=== PATIENT | female | born 2000 | race Caucasian/White ===

== ENCOUNTER 2019-04-05 14:43 | Emergency (ER) | payer OTHER, SELFPAY ==
[2019-04-05 15:43] VITALS: BP 119/79; PULSE 92; RESP 20; TEMP 36.8; O2SAT 100
--- NOTE | 2019-04-05 16:51 | ED.GENADULT ---
HPI - General Adult General Chief complaint: Ear Stated complaint: right ear Time Seen by Provider: 04/05/19 16:51 Source: patient and RN notes reviewed Mode of arrival: ambulatory Limitations: no limitations History of Present Illness HPI narrative: 18-year-old female presents with complaints of bumps, redness, warmth, tenderness, and swelling to right upper earlobe for 2 days. Increasing symptoms over the last 24 hours with swelling, redness, and warmth. No treatment. Denies radiation of tenderness, redness, or swelling. No exacerbating factors. Denies inner ear pain. Denies open areas or drainage. Denies fever or chills. Denies nausea, vomiting, and abdominal pain. Tolerating po intake well. Rose denies being , LMP unknown currently on Depo Provera injections. Some parts of this dictation were generated by voice recognition software and may contain typographical and/or grammatical inaccuracies. Related Data Home Medications Medication Instructions Recorded Confirmed buspirone 10 mg PO TID 04/05/19 04/08/19 venlafaxine 150 mg PO QAM 04/05/19 04/08/19 Allergies Allergy/AdvReac Type Severity Reaction Status Date / Time No Known Allergies Allergy Verified 04/08/19 09:38 Review of Systems Review of Systems: Narrative: CONSTITUTIONAL: Denies fever, chills, sweats. EYES: Denies visual changes, redness, discharge. ENT: Denies rhinorrhea, congestion, sore throat, otalgia. CARDIOVASCULAR: Denies chest pain, palpitations, edema. RESPIRATORY: Denies dyspnea, wheezing, cough. GASTROINTESTINAL: Denies abdominal pain, nausea, vomiting, diarrhea. GENITOURINARY: Denies dysuria, hematuria, abnormal discharge. SKIN: Complains of bumps, redness, swelling, warmth, and tenderness to RT upper ear lobe. Denies drainage. MUSCULOSKELETAL: Denies acute back pain, joint pain, or myalgia. NEUROLOGIC: Denies numbness or focal weakness. PSYCHIATRIC: Denies anxiety or depression. All systems reviewed & are unremarkable except as noted in HPI and below. [facility] Family History Family History Mother Hypertension Grandparent Family history of malignant neoplasm of breast Family history of type 2 diabetes mellitus Social History Social History Smoking status: Never smoker Second hand tobacco smoke exposure: No Alcohol intake: never Substance use: never Gender identity (if verbalized by the patient): Female Comments At time of signature, agree with nurse past medical, surgical, social, and family history. There is no relevant family history pertinent to the presenting complaint. Exam Narrative: Exam Narrative: GENERAL: This is a well-nourished, well-developed patient, in no apparent distress. HEAD: normocephalic, atraumatic. EYES: PERRL. Sclera clear/white. Vision is grossly intact. CARDIOVASCULAR: Regular rate and rhythm without murmurs, gallops, or rubs. RESPIRATORY: Clear to auscultation. Breath sounds equal bilaterally. No wheezes, rales, or rhonchi. GASTROINTESTINAL: Abdomen soft, non-tender, nondistended. Bowel sounds are active. No hepato-splenomegaly, or palpable masses. No guarding. SKIN: warm, RT upper HRLIX with mild-moderate erythema and warmth, no fluctuation, I&D not necessary at this time. Surrounding Cellulitis. Skin intact. No drainage or ecchymosis. Good texture and turgor. NEURO: awake, alert, and oriented to person, place and time. There were no obvious focal neurologic abnormalities. Steady gait EXTREMITIES: No clubbing, cyanosis, or edema. BACK: Nontender without deformity. Nelson Coma Scale Eye Opening: Spontaneous 4 Usman Coma Scale Motor: Obeys Commands 6 Nelson Coma Scale Verbal: Oriented 5 Course Vital Signs Vital signs: Vital Signs Temperature 36.8 C 04/05/19 15:43 Pulse Rate 92 04/05/19 15:43 Respiratory Rate 20 04/05/19 15:43 Blood Pressure
== END 2019-04-05 17:07 | disposition home or self-care (01) ==
PROVIDERS: Emergency Provider Nurse Practitioner Family
DX: H60.11 Cellulitis of right external ear (principal); F41.9 Anxiety disorder, unspecified; F32.9 Major depressive disorder, single episode, unspecified
CPT/HCPCS: 99213; G0463

== ENCOUNTER 2019-04-08 09:13 | Emergency (ER) | payer OTHER, SELFPAY ==
[2019-04-08 09:17] VITALS: BP 120/75; PULSE 80; RESP 20; TEMP 37.2; O2SAT 100
--- NOTE | 2019-04-08 10:13 | ED.GENADULT ---
HPI - General Adult General Chief complaint: Upper Respiratory Infection Stated complaint: chills stomach pains Time Seen by Provider: 04/08/19 10:13 Source: patient and RN notes reviewed Mode of arrival: ambulatory Limitations: no limitations History of Present Illness HPI narrative: 18-year-old female who presents to [facility] care with complaints of nausea, stomach aches, feeling shaky, and some diarrhea. Patient was seen in the express care on the for possible cellulitis to the upper ear lobe of her right ear with red lesions which have now scabbed and decreased in size patient wonders if some of her symptoms are related to Bactrim RX she was given. Mother state that brother had positive strep last week. MD complaint: nausea and stomach pain Onset (ago): day(s) (2) Location: head (righ upper ear) and abdomen Radiation: non-radiation Severity: mild Severity scale (1-10): 3 (3) Quality: aching Pain Consistency: constant Relieving factors: none Exacerbating factors: eating Associated symptoms: fever/chills, headaches and nausea/vomiting Treatments prior to arrival: NSAID Related Data Home Medications Medication Instructions Recorded Confirmed buspirone 10 mg PO TID 04/05/19 04/08/19 venlafaxine 150 mg PO QAM 04/05/19 04/08/19 Allergies Allergy/AdvReac Type Severity Reaction Status Date / Time No Known Allergies Allergy Verified 04/08/19 09:38 Review of Systems Review of Systems: Narrative: CONSTITUTIONAL:report feels feverish, chills, or sweats. EYES: Denies visual changes, redness, or discharge. ENT: Denies rhinorrhea, congestion, sore throat, or otalgia. CARDIOVASCULAR: Denies chest pain, palpitations, or edema. RESPIRATORY: Denies cough or dyspnea. GASTROINTESTINAL: Positive for abdominal discomfort, nausea, vomiting, and diarrhea. GENITOURINARY: Denies dysuria or hematuria. SKIN: Denies rash or itching.healing lesions to outer upper right ear, no redness or swelling MUSCULOSKELETAL: Denies back pain, joint pain, or myalgia. NEUROLOGIC: Positive headache,no numbness, or weakness.states feels shaky PSYCHIATRIC: Denies anxiety or depression. All systems reviewed & are unremarkable except as noted in HPI and below PMFSH Past Medical History Medical History Anxiety Depression Surgical History Surgical History History of lumpectomy of left breast 3 to 4 years ago Family History Family History Mother Hypertension Grandparent Family history of malignant neoplasm of breast Family history of type 2 diabetes mellitus Social History Social History Smoking status: Never smoker Second hand tobacco smoke exposure: No Alcohol intake: never Substance use: never Gender identity (if verbalized by the patient): Female Comments At time of signature, agree with nursing past medical, social history. There is no relevant family history pertinent to the presenting complaint Exam Narrative: Exam Narrative: GENERAL: Well-appearing, well-nourished, and in no acute distress. HEAD: Normocephalic, atraumatic. EYES: PERRLA and EOMI. ENT: Nares clear, no rhinorrhea or epistaxis. Mucous membranes moist.TM's normal with good light reflex, Throat red with no lesions or exudate, some tonsil swelling noted NECK: Supple.mild lymphadenopathy CHEST: Clear to auscultation. No respiratory distress. HEART: Regular rate and rhythm. No murmur heard. Normal peripheral pulses. ABDOMEN: Soft, nontender on palpation with negative McBurney tenderness,, non distended, normal active bowel sounds. EXTREMITIES: Normal range of motion. No edema. SKIN: Warm, dry, no rash.healing redness to right outer ear and healing lesions NEURO: No focal deficits. Alert and oriented x3. Course Vital Signs Vital signs: Vital Sig
== END 2019-04-08 10:40 | disposition home or self-care (01) ==
PROVIDERS: Emergency Provider Registered Nurse
DX: J02.0 Streptococcal pharyngitis (principal); F32.9 Major depressive disorder, single episode, unspecified; F41.9 Anxiety disorder, unspecified
CPT/HCPCS: 87804; 87880; 99213; G0463

== ENCOUNTER 2020-05-21 15:51 | Emergency (ER) | payer OTHER, SELFPAY ==
[2020-05-21 16:03] VITALS: BP 132/84; PULSE 93; RESP 18; TEMP 36.6; O2SAT 98
--- NOTE | 2020-05-21 16:14 | ED.SKABFB ---
HPI - Skin/Abscess/Foreign Bdy General Chief complaint: Skin/Abscess/Foreign Body Stated complaint: Fall/Head Injury Time Seen by Provider: 05/21/20 16:10 Source: patient and RN notes reviewed History of Present Illness HPI narrative: Patient is a 19-year-old female who presents the urgent care with complaints of a head injury. Patient states that she was sitting on a trailer which they were trying to hook to the back of a truck, the trailer was sitting on blocks and it slipped off the blocks, causing the patient to fall forward and hitting her head on a metal bar. Patient states that she has taken 400 mg of ibuprofen since the fall and does still have a headache. Patient denies of any vision changes, nausea, vomiting, loss of consciousness. Patient states that the fall was witnessed. Patient is worried about the dent in her head . No other acute complaints. No acute distress noted. Patient aware of the plan of care. Some parts of this dictation were generated by voice recognition software and may contain typographical and/or grammatical inaccuracies. Related Data Home Medications Medication Instructions Recorded Confirmed fluoxetine 20 mg capsule 20 mg PO DAILY 03/11/20 Allergies Allergy/AdvReac Type Severity Reaction Status Date / Time No Known Allergies Allergy Verified 05/21/20 16:13 Review of Systems Review of Systems: Narrative: CONSTITUTIONAL: Denies fever, chills, or sweats. EYES: Denies visual changes, redness, or discharge. ENT: Denies rhinorrhea, congestion, sore throat, or otalgia. CARDIOVASCULAR: Denies chest pain, palpitations, or edema. RESPIRATORY: Denies cough or dyspnea. GASTROINTESTINAL: Denies abdominal pain, nausea, vomiting, or diarrhea. GENITOURINARY: Denies dysuria or hematuria. SKIN: Reports of a dent and bruising in the forehead MUSCULOSKELETAL: Denies back pain, joint pain, or myalgia. NEUROLOGIC: Reports of headache All other systems reviewed are negative, except as documented in HPI. [facility] Past Medical History Medical History (Updated 05/21/20 @ 16:22 by MOISES Hernandez) Anxiety Depression Surgical History Surgical History History of lumpectomy of left breast 3 to 4 years ago Family History Family History Mother Hypertension Grandparent Family history of malignant neoplasm of breast Family history of type 2 diabetes mellitus Social History Social History Smoking status: Never smoker Second hand tobacco smoke exposure: No Alcohol intake: never Substance use: never Gender identity (if verbalized by the patient): Female Comments At the time of my signature, I reviewed and agree with the nursing past medical, surgical, social, and family history. There is no relevant family history pertinent to the patient complaint. Exam Narrative: Exam Narrative: GENERAL: This is a well-nourished, well-developed patient, in no apparent distress. HEAD: normocephalic, atraumatic. EYES: PERRL. Sclera clear/white. Vision is grossly intact. EARS: External ears normal, auditory canals clear and without drainage, TMs normal without perforation. Hearing grossly intact. NOSE: External nose normal with no obvious nasal discharge, nares without redness, no rhinorrhea. THROAT: Mucous membranes moist, posterior pharynx clear. NECK: Neck supple, non-tender without lymphadenopathy SKIN: 1 cm area of ecchymosis/hematoma noted to the right upper forehead with 0.5 cm small indention. Tenderness around the area. Warm, intact with no suspicious lesions or rash, good texture and turgor. NEURO: awake, alert, and oriented to person, place and time. There were no obvious focal neurologic abnormalities. EXTREMITIES: No clubbing, cyanosis, or edema. Course Vital Signs Vital signs: Vital Signs Temperature 97.8 F 0
[2020-05-21 16:15] VITALS: BP 132/84; PULSE 93; RESP 18; TEMP 36.6; O2SAT 98
== END 2020-05-21 16:26 | disposition home or self-care (01) ==
PROVIDERS: Emergency Provider Nurse Practitioner Family; PCP Physician Assistant Medical
DX: S00.93XA Contusion of unspecified part of head, initial encounter (principal); W19.XXXA Unspecified fall, initial encounter; R51.9 Headache, unspecified; F41.9 Anxiety disorder, unspecified; F32.9 Major depressive disorder, single episode, unspecified
CPT/HCPCS: 99212; G0463

== ENCOUNTER 2023-11-15 09:13 | Outpatient (CLI) | payer OTHER, SELFPAY ==
--- NOTE | ~2023-11-15 | US_ITS ---
US breast RT limited 11/15/2023 09:48 Indication: Palpable right breast abnormality. History of prior lumpectomy for fibrous tissue. No fam kimberlee history of breast cancer. Procedure: High-resolution Limited ultrasound of the right breast Comparison: No prior studies for comparison. Findings: At 11:00, 4 cm from the nipple there is an oval parallel oriented heterogeneous appearing m ass measuring 2.4 x 2.2 x 1.4 cm without internal vascularity or posterior shadowing. At 10:30, 3 cm from the nipple there is an oval circumscribed parallel oriented hypoechoic mass without posterior fe atures measuring 10 x 9 x 6 mm. At 9:00, 4 cm from the nipple there is an oval hypoechoic circumscrib ed mass with some irregular margins along the lateral aspect measuring 11 x 13 x 7 mm. There is poste rior acoustic enhancement and marginal vascularity. Impression: 1: Probable benign right breast masses. BI-RADS CATEGORY 3-PROBABLY BENIGN FINDING RECOMMENDATION: 6 month follow up recommended. Reviewed, dictated and finalized at location B. Impression: 1: Probable benign right breast masses. BI-RADS CATEGORY 3-PROBABLY BENIGN FINDING RECOMMENDATION: 6 month follow up recommended.
== END 2023-11-15 09:14 | disposition home or self-care (01) ==
PROVIDERS: PCP Physician Assistant Medical; Visit Provider Nurse Practitioner Obstetrics & Gynecology
DX: N63.11 Unspecified lump in the right breast, upper outer quadrant (principal)
CPT/HCPCS: 76642

== ENCOUNTER 2024-07-08 08:48 | Outpatient (CLI) | payer OTHER, SELFPAY ==
--- NOTE | ~2024-07-08 | US_ITS ---
US breast RT limited 07/08/2024 09:06 Indication: Follow-up right breast masses Procedure: High-resolution Limited ultrasound of the right breast Comparison: Findings: At 9:00, 4 cm from the nipple there is an oval parallel oriented hypoechoic mass measuring 1.6 x 1.3 x 1 cm. There is posterior acoustic enhancement and internal vascularity. This compares to measurements of 1.3 x 1.1 x 0.7 cm on prior examination. At 10:30, 3 cm from the nipple there is an o santi parallel oriented hypoechoic mass measuring 8 x 8 x 6 mm compared with 11 x 9 x 6 mm on prior exa mination. At 11:00, 4 cm from the nipple there is an oval hypoechoic heterogeneous mass measuring 3 x 2.7 x 1.9 cm compared with 2.4 x 2.2 x 1.4 cm on prior examination. Impression: 1: Slight enlargement of right breast masses located at 9:00, 4 cm from the nipple and 11:00, 4 cm fr om the nipple, although still likely benign. Decreased size of mass present at 10:30, 3 cm from the n ipple. BI-RADS CATEGORY 3-PROBABLY BENIGN FINDING RECOMMENDATION: Six-month follow-up Limited right breast ultrasound recommended. Reviewed, dictated and finalized at location A. Impression: 1: Slight enlargement of right breast masses located at 9:00, 4 cm from the nip ple and 11:00, 4 cm from the nipple, although still likely benign. Decreased si ze of mass present at 10:30, 3 cm from the nipple. BI-RADS CATEGORY 3-PROBABLY BENIGN FINDING RECOMMENDATION: Six-month follow-up Limited right breast ultrasound recommended .
--- OUTSIDE RECORDS SUMMARY | 2024-07-08 08:52 | XMS_ITS | Clinical Summary ---
Author Organization [facility] [address] l[address] Address [address] [place] [address] Care Team Providers Care Aircraft Engine Specialist Name Role Phone Nereyda Goss Primary Care Provider [phone] Unknown, Notinfile Unavailable Unavailable Allergies No known active allergies Medications buPROPion XL (WELLBUTRIN XL) 300 mg 24 hr tablet 1 tablet (300 mg total) 3 Active SUMAtriptan (IMITREX) 50 mg tabletIndication s:Migraine Take 1 tablet (50 mg total) by mouth once as needed for migraine May repeat after 2 hours. 27 tablet 4 4 Active ondansetron (ZOFRAN) 4 mg tabletIndication s:Migraine without aura and without status migrainosus, not intractable Take 1 tablet (4 mg total) by mouth every 8 (eight) hours as needed for nausea or vomiting 20 tablet [address] (NexIUM) 40 mg capsuleIndicatio ns:Gastroesophag eal reflux disease without esophagitis Take 1 capsule (40 mg total) by mouth daily before breakfast 30 capsule 11 4 Active Additional Information Patient not taking.Reported on 01/17/2024 azelastine (ASTELIN) 137 mcg (0.1 %) nasal sprayIndications :Chronic MARCELLUS (middle ear effusion), left Administer 1 spray into each nostril 2 (two) times a day Use in each nostril as directed 30 mL 4 Active cholecalciferol (VITAMIN D-3) 50,000 unit capsuleIndicatio ns:Vitamin D Deficiency Take 1 capsule (50,000 Units total) by mouth once a week 4 capsule 1 4 Active propranoloL (INDERAL) 10 mg tablet Take 1 tablet (10 mg total) by mouth 3 (three) times a day Active Active Problems Problem Noted Date Diagnosed Date Scoliosis 05/12/2014 Syncope 02/27/2012 Immunizations Immunization Administration Dates Next Due DTaP, Unspecified 08/18/2003, 1,02/17/1999,12/16,1998 Hep A, Unspecified 10/18/2011,09/21/2009 Hep B, Unspecified 05/17/1999,02/17/1999, 999 HiB 12/04/1999, 0,1998,10/18 Influenza, Quadrivalent, Spl it, Preservative Free, Intramuscular 11/07/2022 MMR 08/18/2003,08/31/1999 Meningococcal B, Recombinant (Trumenba) 05/13/2017,08/29/2016 Meningococcal MCV4P (Menactra) 07/28/2014,2009 Pfizer Sars-Cov-2 Bivalent V accination (12+ YRS) 12/07/2021 Polio, Unspecified 08/18/2003, 1,1998,10/18 Tdap 09/21/2009 Varicella 10/24/2007,11/01/1999 Surgical History Surgery Date Site/Laterality Comments BREAST BIOPSY 02/11/2011 - 02/11/2012 Left Medical History Medical History Date Comments Anxiety and depression Family History Medical History Relation Name Comments Low Back Pain Father Opal Lozoya Family history of low back pain - (Added by TW Conv) Obesity Father Opal Lozoya Hypertension Mother Carly Lozoya Hypertension - (Added by TW Conv) Low Back Pain Mother Carly Lozoya Family hist ory of low back pain - (Added by TW Conv) Obesity Mother Carly Lozoya Scoliosis Mother Carly Lozoya Family histo ry of scoliosis - (Added by TW Conv) Relation Name Status Comments Father Opal Lozoya Alive Mother Carly Lozoya Alive Social History Tobacco Use Types Packs/Day Years Used Date Smoking Tobacco: Never Smokeless Tobacco: Never Tobacco Cessation:Counseling Given: Not Answered AUDIT-C Answer Date Recorded Q1: How often do you have a drink containing alc ohol? Monthly or less 03/06/2023 Q2: How many drinks containi ng alcohol do you have on a typical day when you are drinking? 1 or 2 03/06/2023 Frequency of Binge Drinking Not on file 02/12 PHQ-2 Answer Date Recorded PHQ-2 Total Score (If total score is 3 or more points, staff should administer the PHQ-9) 2 03/06/2023 Comments Unknown Sex and Gender Information Value Date Recorded Sex Assigned at Not on file Legal Sex Female 6:28 AM POST ANESTHESIA NURSE Gender Identity Not on file Sexual Orientation Not on file Obstetrics History Last Filed Vital Signs Vital Sign Reading Time Taken Comments Blood Pressure 128/85 01/17/2024 2:57 PM POST ANESTHESIA NURSE Pulse 83 01/17/2024 2:57 PM POST ANESTHESIA NURSE Temperature 36.3 C (97.4 F) 03/06/2023 9:57 AM POST ANESTHESIA NURSE Respiratory Rate 16 08/02/2022 6:26 PM CDT Oxygen Saturation 98% 03/06/2023 9:57 AM POST ANESTHESIA NURSE Inhaled Oxygen Concentration - - Weight 59.4 kg (131 lb) 01/17/2024 2:57 PM POST ANESTHESIA NURSE Height 162.6 cm (5' 4) 01/17/2024 2:57 PM POST ANESTHESIA NURSE Body Mass Index 22.49 01/17/2024 2:57 PM POST ANESTHESIA NURSE Plan of Treatment Health Maintenance Due Date Last Done Comments Hepatitis C Screening 1998 HPV Vaccines (1 - 3-dose series) 2013 Regular Well Visit/Exam 18-64 2016 DTaP/Tdap/Td Vaccine (7 - Td or Tdap) 09/22/2019 09/21/2009, 08/18/2003, 02/14/2000, Additional history exists Covid-19 Vaccine ( season) 2023 12/07/2021, 01/03/2021, 03/30/2020, Additional history exists Depression Screening 03/06/2024 03/06/2023, 03/06/19 Influenza Vaccine (Season Ended) 2024 11/07/2022 Cervical Cancer Screening 09/12/2027 09/11/2022 Hepatitis B Screening Completed 05/17/1999 , 02/17/1999, 1998 Varicella Vaccines Completed 10/24/2007, 11/01/1999 Pneumococcal vaccine <65 Aged Out No longer eligible based on patient's age to complete this topic Insurance [facility] CHOICE PLUS [facility] HMO/PPO Address: [address] [address] [place] [address] [facility] HMO/PPO Address: [address] [address] [place] [address] [facility] HMO/PPO Address: [facility] [address] [place] [address] Care Teams Aircraft Engine Specialist Relationship Specialty Start Date End Date Nereyda Goss PA [address] [place] [address] [phone] PCP - General Family Practice 04/21/22 Unknown, Notinfile 04/21/22
--- OUTSIDE RECORDS SUMMARY | 2024-07-08 08:52 | XMS_ITS | Referral Summary ---
Author Organization [facility] [address] [facility] l[address] Address [address] [place] [address] Care Team Providers Care Sales Representative Electric Service Name Role Phone Nereyda Goss Primary Care Provider [phone] Unknown, Notinfile Unavailable Unavailable Allergies No known [...] mouth once a week 4 capsule 1 Active propranoloL (INDERAL) 10 mg tablet Take [...] Unspecified 08/18/2003, 1,1998,10/18 Tdap 09/21/2009 Varicella 10/24/2007,11/01/1999 Social History Tobacco Use Types Packs/Day Years [...] on file Legal Sex Female 6:28 AM INDUSTRIAL SALES ENGINEER Gender Identity Not on file Sexual Orientation Not on file Last Filed Vital Signs Vital Sign Reading Time Taken Comments Blood Pressure 128/85 01/17/2024 2:57 PM INDUSTRIAL SALES ENGINEER Pulse 83 01/17/2024 2:57 PM INDUSTRIAL SALES ENGINEER Temperature 36.3 C (97.4 F) 03/06/2023 9:57 AM INDUSTRIAL SALES ENGINEER Respiratory Rate 16 08/02/2022 6:26 PM CDT Oxygen Saturation 98% 03/06/2023 9:57 AM INDUSTRIAL SALES ENGINEER Inhaled Oxygen Concentration - - Weight 59.4 kg (131 lb) 01/17/2024 2:57 PM INDUSTRIAL SALES ENGINEER Height 162.6 cm (5' 4) 01/17/2024 2:57 PM INDUSTRIAL SALES ENGINEER Body Mass Index 22.49 01/17/2024 2:57 PM INDUSTRIAL SALES ENGINEER Plan of Treatment Not on file Insurance [facility] CHOICE PLUS [facility] Care Teams Sales Representative Electric Service Relationship Specialty Start Date End Date Nereyda Goss PA [address] [place] [id number] PCP - General Family Practice 04/21/22 Unknown, Notinfile 04/21/22
--- OUTSIDE RECORDS SUMMARY | 2024-07-08 08:52 | XMS_ITS | Clinical Summary ---
Author Organization [facility] Address [address] [place] [address] Care Team Providers Care A P Manager Name Role Phone Unavailable Primary Care Provider Unavailabl e Source Comments [facility],non-owned Affiliates and Associated Physician Practices is amultiple site organization consisting of ambulatory clinics and hospital sitesin [place], [place], [place] and [place]. This disclosure is being madepursuant to the Care Everywhere program and may not contain all information available regarding this patient. Last updated 17.[facility] Allergies No known active allergies Medications * This document contains information received from the source organization and may not represent a complete record from that organization. * Be aware that medications may not be up to date on this document. Alwaysverify current medications with the patient. 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 Plan 6 month followup exam and left breast US Resolved Problems Problem Noted Date Diagnosed Date Resolved Date Lump or mass in breast 12/10/201301/09 Overview (01/09/2014): Left: 2:00, areola edge 11/26/2013 [place]: 2.3 cm solid mass, cat 4 6 month followup with repeat ultrasound versus surgical excision. The patient and her mother are leaning toward surgical excision, but getting a 2nd opinion with Dr. Driscoll. S/p 01/04/2014 excisional biopsy ([place]): fibroadenoma Immunizations Immunization Administration Dates Next Due Covid Pfizer primary monoval ent 12+ yr 0.3mL Purple cap 03/30/2020,03/08/2020 Family History Medical History Relation Name Comments Cancer - Breast Other mat great grandmother Relation Name Status Comments Other mat great grandmother Social History Tobacco Use Types Packs/Day Years Used Date Smoking Tobacco: Never Alcohol Use Standard Drinks/Week Comments No 0 (1 standard drink = 0.6 oz pur e alcohol) Comments No Sex and Gender Information Value Date Recorded Sex Assigned at Not on file Legal Sex Female 2:39 PM MANAGER VEHICLE Gender Identity Not on file Sexual Orientation Not on file Last Filed Vital Signs Vital Sign Reading Time Taken Comments Blood Pressure 118/78 07/16/2016 3:32 PM CDT Pulse 60 07/16/2016 3:32 PM CDT Temperature 37.3 C (99.2 F) 07/16/2016 3:32 PM CDT Respiratory Rate 16 07/16/2016 3:32 PM CDT Oxygen Saturation 100% 01/04/2014 9:00 AM MANAGER VEHICLE Inhaled Oxygen Concentration - - Weight 52.8 kg (116 lb 6.4 oz) 07/16/2016 3:32 P M CDT Height 160 cm (5' 3) 07/16/2016 3:32 PM CDT Body Mass Index 20.62 07/16/2016 3:32 PM CDT Plan of Treatment Health Maintenance Due Date Last Done Comments HIV SCREENING 2013 HPV VACCINE (1 - 3-dose series) 2013 CHLAMYDIA/GONORRHEA SCREENING 2014 HEPATITIS C SCREENING 08/09/2016 DTAP/TDAP/TD VACCINES (1 - Tdap) 2017 HEPATITIS B VACCINE (1 of 3 - 19+ 3-dose series) 2017 COVID-19 VACCINE ( - 2023-2 5 season) 2023 03/30/2020, 03/08/2020 DEPRESSION SCREENING 02/12/2024 INFLUENZA VACCINE (Season Ended) 2024 ZOSTER VACCINE (1 of 2) 2048 HIB VACCINE Aged Out No longer eligi ble based on patient's age to complete this topic MENINGOCOCCAL (Group B) VACCINE SHARED DECISION-MAKING Aged Out No longer eligible based on patient's age to complete this topic MENINGOCOCCAL GROUPS A/C/Y/W VACCINE Aged Out No longer eligible b ased on patient's age to complete this topic PNEUMOCOCCAL VACCINE Aged Out No long er eligible based on patient's age to complete this topic Insurance [facility]
== END 2024-07-08 08:49 | disposition home or self-care (01) ==
LOC: ANHIMG 08:49
PROVIDERS: PCP Physician Assistant Medical; Visit Provider Nurse Practitioner Obstetrics & Gynecology
DX: R92.8 Other abnormal and inconclusive findings on diagnostic imaging of breast (principal)
CPT/HCPCS: 76642

== ENCOUNTER 2024-09-27 18:22 | Emergency (ER) | payer OTHER, SELFPAY ==
--- NOTE | ~2024-09-27 | XR_ITS ---
HISTORY: FALL, LAT PAIN COMPARISON: None TECHNIQUE: 3 views of the left foot were performed FINDINGS: Acute minimally displaced fracture of the distal shaft of the fifth metatarsal is identified. Overlying soft tissue swelling is noted. No significant degenerative disease is noted. The base of the fifth metatarsal is intact. No calcaneal spur is noted. IMPRESSION: Acute minimally displaced fracture of the distal shaft of the fifth metatarsal with over lying soft tissue swelling. Reviewed, dictated and finalized at location A. IMPRESSION: Acute minimally displaced fracture of the distal shaft of the fift h metatarsal with overlying soft tissue swelling.
--- OUTSIDE RECORDS SUMMARY | 2024-09-27 18:25 | XMS_ITS | Clinical Summary ---
Author Organization [facility] Address [address] [place] [address] Care Team Providers Care Infertility Nurse Name Role Phone Unavailable Primary Care Provider Unavailabl e Source Comments [facility],non-owned Affiliates and Associated Physician Practices is amultiple site organization consisting of ambulatory clinics and hospital sitesin [place], [place], [place] and [place]. This disclosure is being madepursuant to the Care Everywhere program and may not contain all information available regarding this patient. Last updated 17.[facility] Allergies No known active allergies Medications * [...] Left: 2:00, areola edge 11/26/2013 [place]: 2.3 cm solid mass, cat 4 6 [...] on file Legal Sex Female 2:39 PM SUBSTANCE ABUSE SPECIALIST Gender Identity Not on file Sexual Orientation Not on file Last Filed Vital Signs Vital Sign Reading Time Taken Comments Blood Pressure 118/78 07/16/2016 3:32 PM CDT Pulse 60 07/16/2016 3:32 PM CDT Temperature 37.3 C (99.2 F) 07/16/2016 3:32 PM CDT Respiratory Rate 16 07/16/2016 3:32 PM CDT Oxygen Saturation 100% 01/04/2014 9:00 AM SUBSTANCE ABUSE SPECIALIST Inhaled Oxygen Concentration - - Weight 52.8 kg (116 lb 6.4 oz) 07/16/2016 3:32 P M CDT Height 160 cm (5' 3) 07/16/2016 3:32 PM CDT Body Mass Index 20.62 07/16/2016 3:32 PM CDT Plan of Treatment Health Maintenance Due Date Last Done Comments HIV SCREENING 2013 HPV VACCINE (1 - 3-dose series) 2013 HEPATITIS C SCREENING 08/09/2016 DTAP/TDAP/TD VACCINES (1 - Tdap) 2017 HEPATITIS B VACCINE (1 of 3 - 19+ 3-dose series) 2017 COVID-19 VACCINE (3 - 2023-2 5 season) 2023 03/30/2020, 03/08/2020 DEPRESSION SCREENING 02/12/2024 INFLUENZA VACCINE (#1) 2024 ZOSTER VACCINE (1 of 2) 2048 [...] patient's age to complete this topic Insurance [facility]
--- OUTSIDE RECORDS SUMMARY | 2024-09-27 18:25 | XMS_ITS | Clinical Summary ---
Author Organization [facility] [address] [facility] Address [address] [place] [address] Care Team Providers Care Golf Club Repairer Name Role Phone Nereyda Goss Primary Care Provider [phone] Unknown, Notinfile Unavailable Unavailable Allergies No known [...] - (Added by TW Conv) Obesity Father Oapl Lozoya Hypertension Mother Carly Lozoya Hypertension - [...] on file Legal Sex Female 6:28 AM DIRECTOR POWER Gender Identity Not on file Sexual Orientation Not on file Obstetrics History Last Filed Vital Signs Vital Sign Reading Time Taken Comments Blood Pressure 128/85 01/17/2024 2:57 PM DIRECTOR POWER Pulse 83 01/17/2024 2:57 PM DIRECTOR POWER Temperature 36.3 C (97.4 F) 03/06/2023 9:57 AM DIRECTOR POWER Respiratory Rate 16 08/02/2022 6:26 PM CDT Oxygen Saturation 98% 03/06/2023 9:57 AM DIRECTOR POWER Inhaled Oxygen Concentration - - Weight 59.4 kg (131 lb) 01/17/2024 2:57 PM DIRECTOR POWER Height 162.6 cm (5' 4) 01/17/2024 2:57 PM DIRECTOR POWER Body Mass Index 22.49 01/17/2024 2:57 PM DIRECTOR POWER Plan of Treatment Health Maintenance Due Date Last Done Comments Hepatitis C Screening 1998 HPV Vaccines (1 - 3-dose series) 2013 Regular Well Visit/Exam 18-64 2016 DTaP/Tdap/Td Vaccine (7 - Td or Tdap) 09/22/2019 09/21/2009, 08/18/2003, 02/14/2000, Additional history exists Covid-19 Vaccine ( season) 2023 12/07/2021, 01/03/2021, 03/30/2020, Additional history exists Depression Screening 03/06/2024 03/06/2023, 03/06/19 Influenza Vaccine (#1) 2024 11/07/2022 Cervical Cancer Screening 09/12/2027 09/11/2022 Hepatitis B Screening Completed 05/17/1999 , 02/17/1999, 1998 Varicella Vaccines Completed 10/24/2007, 11/01/1999 Pneumococcal vaccine <65 Aged Out No longer eligible based on patient's age to complete this topic Insurance [facility] HMO/PPO Address: [address] [address] [place] [address] [facility] H[facility]/PPO Address: [address] [address] [place] [address] [facility] H[facility]/PPO Address: [facility] [address] [place] [address] Care Teams Golf Club Repairer Relationship Specialty Start Date End Date Nereyda Goss PA [address] [place] [address] [phone] PCP - General Family Practice 04/21/22 Unknown, Notinfile 04/21/22
--- OUTSIDE RECORDS SUMMARY | 2024-09-27 18:25 | XMS_ITS | Patient Health Record ---
Author Organization [facility] Address [address] [place] [address] Care Team Providers Care General Cargo Clerk Name Role Phone Liz Bridges Unavailable [phone] Reason For Referral No Information Medications Medication SIG (Take, Route, Frequency, Duration) Notes Start Date End Date Status LORazepam 0.5 MG Oral 03/10/2019 Ac tive Venlafaxine HCl ER 75 MG Oral 03/10/2019 Active medroxyPROGESTERone Acetate 150 MG/ML Intramuscular 03/10/2019 Active Venlafaxine HCl ER 150 MG Oral 03/10/2019 Active busPIRone HCl 10 MG Oral 03/10/2019 Active Effexor XR 75 MG Oral 03/10/2019 Ac tive Immunizations Vaccine Route Administration Date Status Comme nts Tdap Unknown 02/12/2016 Administered MMR Unknown 02/12/2016 Administered Influenza, quadrivalent, spl it virus Unknown 12/08/2018 Administered Influenza, injectable, MDCK, preservative free Unknown 12/08/2018 Administered Influenza virus vaccine, quadrivalent (IIV4), split virus, 0.25 mL dosage Unknown 10/29/2018 Administered Plan Of Treatment No Information Insurance Providers Payer Name Payer Address Payer Phone Subscriber Number Group Number Insured Name Patient Relationship to Insured Coverage Start Date Coverage End Date [facility] [address] [address] [place] [address] [id number] OPAL LOZOYA Natural Child - Insured has Financial Responsibility Medical (General) History Surgical History Surgery Date(Month/Year) Biopsy of breast ([id number])
[2024-09-27 18:29] VITALS: BP 123/77; PULSE 88; RESP 18; TEMP 36.9; O2SAT 100
--- NOTE | 2024-09-27 19:08 | ED.GENADULT ---
HPI - General Adult General Chief complaint: Extremity Injury, Lower Stated complaint: Fall Injury / Toe Source: patient Mode of arrival: ambulatory Limitations: no limitations History of Present Illness HPI narrative: Patient presents for evaluation of left foot pain. Symptom onset today. She indicates that her left knee gave out. causing her to falll to the ground, with her left foot beneath her. She now has bruising and pain in the mid section of her foot. At rest her pain is 4/10 in severity but increases to 8/10 with movement and weight-bearing. She tried taking ibuprofen which seemed to help. She denies paresthesias. Related Data Home Medications ?Medication ?Instructions ?Recorded ?Confirmed ?Last Taken ?Type levonorgestrel (Mirena) 1 device intrauterine ONCE 10/31/21 09/27/23 Unknown History Allergies Allergy/AdvReac Type Severity Reaction Status Date / Time No Known Allergies Allergy Verified 09/27/24 18:47 Review of Systems Review of Systems: CONSTITUTIONAL: Denies fever, chills, or sweats. EYES: Denies visual changes, redness, or discharge. ENT: Denies rhinorrhea, congestion, sore throat, or otalgia. CARDIOVASCULAR: Denies chest pain, palpitations, or edema. RESPIRATORY: Denies cough or dyspnea. GASTROINTESTINAL: Denies abdominal pain, nausea, vomiting, or diarrhea. GENITOURINARY: Denies dysuria or hematuria. SKIN: Reports bruising left foot. Denies rash or itching. MUSCULOSKELETAL: Reports left foot pain. NEUROLOGIC: Denies headache, numbness, dizziness, or weakness. PSYCHIATRIC: Denies anxiety or depression. [facility] Past Medical History Medical History Encounter for contraceptive surveillance Yeast infection Encounter for prescription for depo-Provera Encounter for Depo-Provera contraception Encounter for annual routine gynecological examination Dysmenorrhea Acute vulvitis Depression Anxiety Surgical History Surgical History History of lumpectomy of left breast 3 to 4 years ago Family History Family History Mother Hypertension Grandparent Family history of malignant neoplasm of breast Family history of type 2 diabetes mellitus Social History Social History Smoking status: Never smoker Second hand tobacco smoke exposure: No Alcohol intake: never Substance use: never Lack of Transportation: No Lack of Food: Never True Current Housing: I Have Housing Concerned About Future Housing: No Difficulty Paying Gas/Electric Bills: No Difficulty Paying for Meds: No Currently Unemployed: No Education: Master's Degree or Higher Difficulty w/ Childcare or Family Care: No Living arrangements: with family Occupation/Education: student Gender identity (if verbalized by the patient): Female Exam Narrative: GENERAL: Well-appearing, well-nourished, and in no acute distress. HEAD: Normocephalic, atraumatic. EYES: PERRLA and EOMI. ENT: Nares clear, no rhinorrhea or epistaxis. Mucous membranes moist. Oropharynx without tonsillar hypertrophy exudate or other lesions. Bilateral TMs pearly [place] nonbulging NECK: Supple. No adenopathy or masses. No carotid bruits or JVD CHEST: Clear to auscultation. No respiratory distress. No wheezes rales or rhonchi HEART: Regular rate and rhythm. No murmur heard. Normal peripheral pulses. ABDOMEN: Soft, nontender, nondistended, normal active bowel sounds. EXTREMITIES: Normal range of motion. There is tenderness over the left 5th metatarsal. SKIN: There is ecchymosis noted to the dorsal aspect of the left foot overlying the 3rd through 5th metatarsals. NEURO: No focal deficits. Alert and oriented x3. PSYCH: Normal mood and affect. Course Course Emergency Course: This is a 24-year-old female who presented for evaluation of left foot pain. X-ray showed 5th metatarsal fracture of the left foot. She is placed in a short-leg posterior OCL and provided with crutches. Will have her follow-up with orthopedics. She declined prescription for analgesics. She should go to the emergency department for intractable pain. Patient in agreement with plan of care. Level of Care: Express Care Visit Vital Signs Vital signs: Vital Signs Temperature 36.9 C 09/27/24 18:29 Pulse Rate 88 09/27/24 18:29 Respiratory Rate 18 09/27/24 18:29 Blood Pressure 123/77 09/27/24 18:29 Pulse Oximetry 100 09/27/24 18:29 Oxygen Delivery Room Air 09/27/24 18:29 Temperature 36.9 C 09/27/24 18:29 Pulse Rate 88 09/27/24 18:29 Respiratory Rate 18 09/27/24 18:29 Blood Pressure 123/77 09/27/24 18:29 Pulse Oximetry 100 09/27/24 18:29 Oxygen Delivery Room Air 09/27/24 18:29 Procedures Orthopedic Splinting/Casting Injury #1: Splinting/Casting Date: 09/27/24 Splinting/Casting Time: 19:36 Side: left Lower Extremity Immobilizer: posterior splint Splint: customized in ED OCL: short leg Pre-Procedure Neuro Vascular Exam: normal Post-Procedure Neuro Vascular Exam: normal Medical Decision Making Vital Signs Vital Signs: Vital Signs Temperature 36.9 C 09/27/24 18:29 Pulse Rate 88 09/27/24 18:29 Respiratory Rate 18 09/27/24 18:29 Blood Pressure 123/77 09/27/24 18:29 Pulse Oximetry 100 09/27/24 18:29 Oxygen Delivery Room Air 09/27/24 18:29 Temperature 36.9 C 09/27/24 18:29 Pulse Rate 88 09/27/24 18:29 Respiratory Rate 18 09/27/24 18:29 Blood Pressure 123/77 09/27/24 18:29 Pulse Oximetry 100 09/27/24 18:29 Oxygen Delivery Room Air 09/27/24 18:29 Imaging Data Radiologist's impression: Ordering Physician: Luis Shelley APRN Date of Service: 09/27/24 Procedure(s): XR foot LT min 3V Accession Number(s): [id number] cc: Luis Shelley APRN; Nereyda Goss PA-C~ HISTORY: FALL, LAT PAIN COMPARISON: None TECHNIQUE: 3 views of the left foot were performed FINDINGS: Acute minimally displaced fracture of the distal shaft of the fifth metatarsal is identified. Overlying soft tissue swelling is noted. No significant degenerative disease is noted. The base of the fifth metatarsal is intact. No calcaneal spur is noted. IMPRESSION: Acute minimally displaced fracture of the distal shaft of the fifth metatarsal with overlying soft tissue swelling. Discharge Plan Discharge Clinical Impression: Closed fracture of fifth metatarsal bone of left foot Patient Disposition: Home Condition: Stable Instructions: Antibiotic Form, Foot Fracture in Adults (ED) Patient Language: Mongolian Prescriptions: No Action Mirena 20 mcg/24 hours (7 yrs) 52 mg intrauterine device 1 device intrauterine ONCE Rx Instructions: as a single dose Follow-up/Referrals: Josué Blancas MD [Physician] - Nereyda Goss PA-C [Primary Care Provider] - Stand Alone Forms: Work/School Release IP Time of Disposition: 19:32
== END 2024-09-27 19:40 | disposition home or self-care (01) ==
PROVIDERS: Emergency Provider Nurse Practitioner; PCP Physician Assistant Medical
DX: S92.352A Displaced fracture of fifth metatarsal bone, left foot, initial encounter for closed fracture (principal); W19.XXXA Unspecified fall, initial encounter
CPT/HCPCS: 29515; 73630; 99214; G0463

== ENCOUNTER 2024-11-09 13:11 | Outpatient (CLI) | payer OTHER, SELFPAY ==
--- NOTE | ~2024-11-09 | XR_ITS ---
EXAMINATION: XR foot LT min 3V, 11/09/2024 13:14 CDT HISTORY: M79.672 - Pain in left foot COMPARISON: No comparisons available. Findings: Nondisplaced fracture fifth metatarsal No significant degenerative changes. Soft tissues unremarkable. Impression: Metatarsal fracture Reviewed, dictated and finalized at location . Impression: Metatarsal fracture
--- OUTSIDE RECORDS SUMMARY | 2024-11-09 13:31 | XMS_ITS | Clinical Summary ---
Author Organization [facility] Address [address] [place] [address] Care Team Providers Care Captain'S Assistant Name Role Phone Unavailable Primary Care Provider Unavailabl e Source Comments [facility],non-owned Affiliates and Associated Physician Practices is amultiple site organization consisting of ambulatory clinics and hospital sitesin [place], [place], [place] and [place]. This disclosure is being madepursuant to the Care Everywhere program and may not contain all information available regarding this patient. Last updated 17.[facility] Allergies No known active allergies Medications * [...] Left: 2:00, areola edge 11/26/2013 [place]: 2.3 cm solid mass, cat 4 6 [...] on file Legal Sex Female 2:39 PM CAMP NURSE Gender Identity Not on file Sexual Orientation Not on file Last Filed Vital Signs Vital Sign Reading Time Taken Comments Blood Pressure 118/78 07/16/2016 3:32 PM CDT Pulse 60 07/16/2016 3:32 PM CDT Temperature 37.3 C (99.2 F) 07/16/2016 3:32 PM CDT Respiratory Rate 16 07/16/2016 3:32 PM CDT Oxygen Saturation 100% 01/04/2014 9:00 AM CAMP NURSE Inhaled Oxygen Concentration - - Weight 52.8 [...] of 3 - 19+ 3-dose series) 2017 DEPRESSION SCREENING 02/12/2024 COVID-19 VACCINE ( - 2024-2 6 season) 2024 03/30/2020, 03/08/2020 INFLUENZA VACCINE (#1) 2024 ZOSTER VACCINE (1 [...] patient's age to complete this topic Insurance [facility]
--- OUTSIDE RECORDS SUMMARY | 2024-11-09 13:31 | XMS_ITS | Clinical Summary ---
Author Organization [facility] [address] [facility] Address [address] [place] [address] Care Team Providers Care Refinery Operator Alkylation Name Role Phone Nereyda Goss Primary Care Provider [phone] Unknown, Notinfile Unavailable Unavailable Allergies No known [...] Date Diagnosed Date Scoliosis 05/12/2014 Syncope 02/27/2012 Encounters Date Type Department Care Team Description 09/28/2024 Telephone [facility] Orthopedics and Sports Medicine [address] [address] Josie Yap MA 09/27/2024 Ancillary Procedure [facility] Outside Films from Last 3 Months Immunizations Immunization Administration Dates Next Due DTaP, [...] on file Legal Sex Female 6:28 AM DRAFTER CASTINGS Gender Identity Not on file Sexual Orientation Not on file Obstetrics History Last Filed Vital Signs Vital Sign Reading Time Taken Comments Blood Pressure 128/85 01/17/2024 2:57 PM DRAFTER CASTINGS Pulse 83 01/17/2024 2:57 PM DRAFTER CASTINGS Temperature 36.3 C (97.4 F) 03/06/2023 9:57 AM DRAFTER CASTINGS Respiratory Rate 16 08/02/2022 6:26 PM CDT Oxygen Saturation 98% 03/06/2023 9:57 AM DRAFTER CASTINGS Inhaled Oxygen Concentration - - Weight 59.4 kg (131 lb) 01/17/2024 2:57 PM DRAFTER CASTINGS Height 162.6 cm (5' 4) 01/17/2024 2:57 PM DRAFTER CASTINGS Body Mass Index 22.49 01/17/2024 2:57 PM DRAFTER CASTINGS Plan of Treatment Health Maintenance Due Date Last Done Comments Hepatitis C Screening 1998 HPV Vaccines (1 - 3-dose series) 2013 Regular Well Visit/Exam 18-64 2016 Depression Screening 03/06/2024 03/06/2023, 03/06/19 24 Covid-19 Vaccine ( season) 2024 12/07/2021, 01/03/2021, 03/30/2020, Additional history exists Influenza Vaccine (#1) 2024 , 12/08/2018, 10/29/2018 DTaP/Tdap/Td Vaccine (8 - Td or Tdap) 02/11/2026 02/12/2016, 09/21/2009, 08/18/2003, Additional history exists Cervical Cancer Screening 09/12/2027 09/11/2022 Hepatitis B Screening Completed 05/17/1999 , 02/17/1999, 1998 Varicella Vaccines Completed 10/24/2007, 11/01/1999 Pneumococcal vaccine <65 Aged Out No longer eligible based on patient's age to complete this topic Procedures Procedure Name Priority Date/Time Associated Diagnosis Comments XR TRANSFER OF OUTSIDE FILMS Routine 09/27/2024 12:00 AM CDT from Last 3 Months Results * XR Outside Reference (09/27/2024 12:00 AM CDT) Narrative [facility] - 09/28/2024 1:20 PM CDT This order has been auto-finalized and does not contain a result. us Provider Transcribed Order IMG XR PROCEDURES Fin al Result [facility] from Last 3 Months Insurance [facility] CHO[facility] HMO/PPO Address: [facility] [address] [place] [address] [facility] H[facility]/PPO Address: [address] [place] [phone] [facility] H[facility]/PPO Address: [address] [place] [phone] Care Teams Refinery Operator Alkylation Relationship Specialty Start Date End Date Nereyda Goss PA [address] [place] [id number] PCP - General Family Practice 04/21/22 Unknown, Notinfile 04/21/22
== END 2024-11-09 13:12 | disposition home or self-care (01) ==
LOC: ANHBWCIMG 13:12
PROVIDERS: PCP Physician Assistant Medical; Visit Provider Orthopaedic Surgery
DX: S92.355A Nondisplaced fracture of fifth metatarsal bone, left foot, initial encounter for closed fracture (principal); X58.XXXA Exposure to other specified factors, initial encounter
CPT/HCPCS: 73630